=== PATIENT | female | born 1940 | race Caucasian/White ===

== ENCOUNTER 2017-01-04 21:23 | Inpatient (IN) | payer MEDICARE, OTHER ==
--- NOTE | ~2017-01-04 | HP ---
History And Physical [place] [id number] [facility] [place]. [address] NAME: PER RIVERS : 40 STATUS : ADM Adrianna PAT#: [id number] AGE: 76 ADM/REG DATE : 01/04/17 MR#: [id number] REPORT SERV DATE: 01/05/17 DICTATED BY: ROULA BALLESTEROS DATE: 01/05/17 REPORT STATUS : Draft TRANSCRIBED BY: MODL DATE: 01/05/17 DATE OF ADMISSION: 01/04/2017 CHIEF COMPLAINT: Shortness of breath, appears to be over a week and progressively over the last two days and frequent falls. HISTORY OF PRESENT ILLNESS: The patient is a 76-year-old female with long history of smoking although the patient denies smoking. She reports she quit approximately four months ago with past medical history of COPD, hyperlipidemia, breast cancer approximately 30 years ago, thyroid disease with hypothyroidism who presents after having progressive shortness of breath, was being treated for flu and azithromycin empirically with Tamiflu and azithromycin approximately three to four days ago but has not had any real significant recovery. Symptoms are shortness of breath, it becomes where she has had decreased exercise tolerance, a constant moderate severity. No pain radiating symptoms. No nausea, vomiting, but has had shortness of breath, reported fever but none since daughter has come back in town who is in the medical field, has been supervising patient's care. The patient has also noted increased weakness with wheezing, has had right knee discomfort and back discomfort after five or six falls. She reports she gets unsteady moving around. Symptoms are worse with activity, only relieved by rest. Symptoms are still currently present. The patient has had negative flu test in clinic but again was started empirically on Tamiflu. The patient has concern for possible technique difficulties with inhaler as the patient is using inhaler approximately q.6 to 4 hours without resolution. ADDITIONAL REVIEW OF SYSTEMS: CONSTITUTIONAL: Noted for weakness and fevers. EYES: No eye pain or visual changes. ENT: No sore throat or congestion. NEURO: No headache or confusion. SKIN: No rashes or bruising. RESPIRATORY: Positive shortness of breath and wheezing. CV: No chest pain or palpitations. GI: No nausea, vomiting, diarrhea, or abdominal pain. : Does have mild hesitation and frequency. MUSCULOSKELETAL: Does have arthralgias, myalgias in back and knee but no swelling. ENDO: Mild fatigue. No polyuria. HEME: No bleeding or bruising. IMMUNOLOGIC: No rrhinorrhea. PSYCH: No anxiety or confusion. PAST MEDICAL HISTORY: COPD, hyperlipidemia, breast cancer 30 years ago. Thyroid disorder, has had left hysterectomy, bilateral knees. 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 The patient denies any smoking history but then admits that she smoked since she was a college up until about four months ago at least half pack per day but she only smokes half of the cigarette. No alcohol or illicits. FAMILY HISTORY: Alzheimer's. History And Physical [address] [address] NAME: PER RIVERS : 40 STATUS : ADM Adrianna PAT#: [id number] AGE: 76 ADM/REG DATE : 01/04/17 MR#: [id number] REPORT SERV DATE: 01/05/17 DICTATED BY: ROULA BALLESTEROS DATE: 01/05/17 REPORT STATUS : Draft TRANSCRIBED BY: WILLIAN DATE: 01/05/17 ALLERGIES: TO SULFA. HOME MEDICATIONS: Ventolin, Lipitor, Advair, Synthroid, Tamiflu, and Z-Nima. PHYSICAL EXAMINATION: VITAL SIGNS: Blood pressure 147/72, temperature 98.7, pulse 81, respirations 22, O2 saturations 96% on 4 L. GENERAL: Elderly thin slightly frail. EYES: No scleral icterus. EOMI. ENT: Dry mucous membranes. Oral, possible thrush. RESPIRATORY: Decreased lower breath sounds with rhonchi in right lung rossi and does have faint wheeze diffusely. CV: Regular rate. No rubs. Pedal pulses palpable, GI: Soft, nontender, nondistended. Bowel sounds positive. : Deferred. MUSCULOSKELETAL: Moves all extremities. 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 No signs of erythema or dislocation of knees bilaterally. 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 SKIN: Warm and dry. LYMPH: No cervical or supraclavicular lymphadenopathy. HEME: No bleeding or bruising. NEURO: Alert and oriented. Moves all extremities x4. PSYCH: Appropriate mood and affect. PERTINENT LABS: Urinalysis; no leukocyte esterase or nitrites. CMP: Procalcitonin negative. BMP grossly within normal limits with glucose 125, calcium 8.0. LFTs; AST and ALT 46 and 38, lactate 0.9. CBC: WBC count 3.8, H and H 13.5 and 39.6, platelets 134. ASSESSMENT AND PLAN: 1. Acute chronic obstructive pulmonary disease exacerbation. 2. Acute hypoxia. 3. Bicytopenia. 4. Hyperlipidemia. 5. Breast cancer history. 6. Hypothyroidism. 7. Weight loss. 8. Frequent falls. 9. Right knee and back pain. 10.Thrush. 11.Systemic inflammatory response syndrome. PLAN: 1. For acute COPD exacerbation, stopped smoking approximately four months ago, was a half- pack per day. Does have poor albuterol technique as the patient does have oral thrush. With this, we will do O2 DuoNebs education, change azithromycin to cephalosporin. Complete Tamiflu as the patient has almost completed with treatment and EZPAP as the patient is currently on 4 L of O2. 2. Acute hypoxia, treat acute COPD exacerbation, requiring 4 L and the patient's baseline is on room air. History And Physical [address] [address] NAME: PER RIVERS : 40 STATUS : ADM Adrianna PAT#: [id number] AGE: 76 ADM/REG DATE : 01/04/17 MR#: [id number] REPORT SERV DATE: 01/05/17 DICTATED BY: ROULA BALLESTEROS DATE: 01/05/17 REPORT STATUS : Draft TRANSCRIBED BY: MODNuria DATE: 01/05/17 3. Bicytopenia. Unclear etiology. We will need to follow. 4. Hyperlipidemia, on medications. 5. Breast cancer history. Has had prior mastectomy, has had ceballos-scan by PCP one month ago. 6. Hypothyroidism, on replacement. 7. Weight loss. She as had full body CT scan per PCP. We will defer to PCP for this. 8. Falls, frequently. PT evaluation, does have acute hypoxia. 9. Right knee and back pain. Check right knee and back plain films. No signs or symptoms of acute break, no tenderness on spine palpation or any palpation at this time. 10.Thrush. Nystatin and teaching of technique. 11.SIRS, treat acute COPD exacerbation, and monitor. All questions answered to the patient and family at bedside. DDN/MODL Roula Ballesteros MD / [id number] CC: Joseph Brock Jr, MD Christine Parker, M.D.
--- NOTE | ~2017-01-04 | DS ---
Discharge Summary [facility] [address] [place]. [address] NAME: PER RIVERS : 40 STATUS : DIS IN PAT#: [id number] AGE: 76 ADM/REG DATE : 01/04/17 MR#: [id number] REPORT SERV DATE: 01/07/17 DICTATED BY: SUNNY TIPTON II DATE: 01/06/17 REPORT STATUS : Draft TRANSCRIBED BY: MODL DATE: 01/06/17 ADMISSION DATE: 01/04/2017 DISCHARGE DATE: 01/06/2017 DISCHARGE DIAGNOSES: 1. Acute exacerbation of chronic obstructive pulmonary disease. 2. Acute hypoxic respiratory failure. 3. Debility. 4. Likely underlying dementia. 5. History of hyperlipidemia. 6. History of breast cancer 30 years ago. 7. Degenerative joint disease. 8. Recent weight loss. Being worked up by PCP with reported negative CT of the chest and abdomen, possibly related to progressive chronic obstructive pulmonary disease. BRIEF HISTORY OF PRESENT ILLNESS: The patient is a 76-year-old female with the above history who presented moral due to progressive shortness of breath and frequent falls. For detailed history and physical examination, please see Dr. Anderson's note from 01/04/2017. HOSPITAL COURSE: After admission, the patient was treated for an acute exacerbation of chronic obstructive pulmonary disease. Her white count was normal and chest x-ray showed chronic changes, but no acute process. She was afebrile and her blood gas did show hypoxia. She has been stable on 2 L nasal cannula and is no longer wheezing with prednisone, nebs, and her inhalers. PT evaluated the patient and thought that she would benefit from inpatient rehab. Currently, the patient is saturating well on 2 L and no more wheezing. She is approved for [facility], and we will go ahead and discharge her for further rehab. Otherwise, she had complained of back pain after a fall and x-rays of her lumbar spine were done which showed just degenerative changes in the lumbar and thoracic spine. Right knee x- ray showed intact prosthesis. The patient is stable for discharge. DISCHARGE MEDICATIONS: 1. Lipitor 40 mg p.o. q.h.s. 2. Omnicef 300 mg p.o. b.i.d. x3 days. 3. Synthroid 88 mcg p.o. daily. 4. Prednisone 40 mg p.o. daily x2 days, then 20 mg p.o. daily x2 days. 5. DuoNeb q.4 hours while awake. 6. Advair one puff inhaled b.i.d. 7. Ventolin two puffs q.4 hours p.r.n. DISCHARGE INSTRUCTIONS: The patient will be discharged to [facility] for further rehab. CHRISTIANO/WILLIAN Sunny Crump Discharge Summary [place] [address] [place]. [address] NAME: PER RIVERS : 40 STATUS : DIS IN PAT#: [id number] AGE: 76 ADM/REG DATE : 01/04/17 MR#: [id number] REPORT SERV DATE: 01/07/17 DICTATED BY: SUNNY TIPTON II DATE: 01/06/17 REPORT STATUS : Draft TRANSCRIBED BY: WILLIAN DATE: 01/06/17 Russell FLORENCE MD / [id number] CC: MD Belem Dennison II, M.D. [facility]
[2017-01-04 21:06] LABS: BASOPHILS 0.5 %; BASOPHILS ABSOLUTE 0.02 10/3/uL (0.0-0.16); EOSINOPHILS 0 %; ER CBC TAT 0 Hrs 05 Mins; HEMOGLOBIN 13.5 g/dL (12.0-16.0); IMMATURE GRANULOCYTES 0.3 %; IMMATURE GRANULOCYTES ABSOLUTE 0.01 10/3/uL (0.0-0.11); LYMPHOCYTES 14.7 %; LYMPHOCYTES ABSOLUTE 0.56 10/3/uL (0.67-4.30); MEAN CORPUS HGB CONC 34.1 g/dL (32.0-36.0); MEAN CORPUSCULAR HEMOGLOB 30.8 pg (26.0-34.0); MEAN PLATELET VOLUME 9.5 fL (9.2-13.0); MONOCYTES 7.6 %; MONOCYTES ABSOLUTE 0.29 10/3/uL (0.21-1.20); NEUTROPHILS 76.9 %; NEUTROPHILS ABSOLUTE 2.92 10/3/uL (2.02-8.40); RBC DISTRIBUTION WIDTH 12.9 % (12.0-16.0); RED CELL COUNT 4.38 10/6/uL (4.0-5.6); WHITE BLOOD CELLS 3.8 10/3/uL (4.5-10.5)
[2017-01-04 21:07] LABS: HEMATOCRIT 39.6 % (36.0-48.0); MANUAL DIFF NO %; MEAN CORPUSCULAR VOLUME 90.4 fL (80-100); PLATELET COUNT 134 10/3/uL (150-400)
[2017-01-04 21:21] LABS: A/G RATIO 1.2 (0.7-1.9); ALBUMIN 3.3 G/DL (3.5-5.0); ALKALINE PHOSPHATASE 103 U/L (45-117); BUN (BLOOD UREA NITROGEN) 6 MG/DL (6-23); CHLORIDE, SERUM 101 MMOL/L (96-112); CO2 (CARBON DIOXIDE) 24 MMOL/L (24-34); CREATININE 0.41 MG/DL (0.55-1.02); GFR AFRICAN AMERICAN 116 ML/MIN (>=60); GFR NON AFRICAN AMERICAN 100 ML/MIN (>=60); GLOBULIN 2.8 G/DL (2.5-4.1); GLUCOSE, SERUM 125 MG/DL (60-99); POTASSIUM, SERUM 3.7 MMOL/L (3.5-5.3); SGOT(AST) 46 U/L (5-40); SGPT(ALT) 38 U/L (5-65); SODIUM, SERUM 136 MMOL/L (135-148); TOTAL BILIRUBIN 0.5 MG/DL (0-1.2); TOTAL PROTEIN 6.1 G/DL (6.0-8.5)
[~2017-01-04 21:23] MED LIST: LIPITOR40 PO; SYN88 PO
[2017-01-04] MEDS ORDERED: LIPITOR40 PO (21:43)
[2017-01-04] MEDS ORDERED: SYN88 PO (21:44)
[2017-01-04] MEDS ORDERED: ADVAIR250 INH (21:44)
[2017-01-04] MEDS ORDERED: VENTOLIN HFA INH (21:45)
[2017-01-04] MEDS ORDERED: Z-PAK PO (21:47)
[2017-01-04] MEDS ORDERED: TAMIFLU PO (21:48)
[2017-01-04 21:58] LABS: PROCALCITONIN <0.05 ng/mL (<0.5)
[2017-01-04 22:05] LABS: WBC (NOT ORDERED) (RFLEX) 0 (0-5)
[2017-01-04 22:15] LABS: ASCORBIC ACID (UR NOT ORDER) NEG (NEG); BILIRUBIN, URINE NEGATIVE (NEG); ER URINALYSIS TAT 0 Hrs 12 Mins; KETONE, URINE 20 MG/DL (NEG); LEUKOCYTE ESTERASE(NOT OR NEG (NEG); NITRITE (URINE) NEG (NEG)
[2017-01-05 06:40] LABS: HEMATOCRIT 36.6 % (36.0-48.0); HEMOGLOBIN 12.6 g/dL (12.0-16.0); MEAN CORPUS HGB CONC 34.4 g/dL (32.0-36.0); MEAN CORPUSCULAR VOLUME 90.1 fL (80-100); MEAN PLATELET VOLUME 9.6 fL (9.2-13.0); PLATELET COUNT 138 10/3/uL (150-400); RBC DISTRIBUTION WIDTH 12.6 % (12.0-16.0); RED CELL COUNT 4.06 10/6/uL (4.0-5.6)
[2017-01-05 06:45] LABS: WHITE BLOOD CELLS 1.9 10/3/uL (4.5-10.5)
[2017-01-05 06:46] LABS: MANUAL DIFF YES %
[2017-01-05 07:00] LABS: ALBUMIN 2.8 G/DL (3.5-5.0); ALKALINE PHOSPHATASE 96 U/L (45-117); BUN (BLOOD UREA NITROGEN) 6 MG/DL (6-23); CALCIUM, SERUM 8.2 MG/DL (8.5-10.4); CHLORIDE, SERUM 100 MMOL/L (96-112); CO2 (CARBON DIOXIDE) 23 MMOL/L (24-34); CREATININE 0.46 MG/DL (0.55-1.02); FREE T4 1.34 NG/DL (0.76-1.46); GFR AFRICAN AMERICAN 112 ML/MIN (>=60); GFR NON AFRICAN AMERICAN 97 ML/MIN (>=60); GLOBULIN 2.7 G/DL (2.5-4.1); POTASSIUM, SERUM 3.6 MMOL/L (3.5-5.3); SGOT(AST) 35 U/L (5-40); SGPT(ALT) 34 U/L (5-65); SODIUM, SERUM 136 MMOL/L (135-148); TOTAL BILIRUBIN 0.5 MG/DL (0-1.2); TOTAL PROTEIN 5.5 G/DL (6.0-8.5); TROPONIN I 0.02 NG/ML (<0.05)
[2017-01-05 07:01] LABS: GLUCOSE, SERUM 186 MG/DL (60-99); ULTRASENSITIVE TSH 0.431 MCIU/ML (0.358-3.740)
[2017-01-05 07:33] LABS: BAND NEUTROPHILS 7 %; LYMPHOCYTES 13 %; LYMPHOCYTES ABSOLUTE (CALC) 0.21 10/3/uL (0.67-4.30); MONOCYTES 3 %; MONOCYTES ABSOLUTE (CALC) 0.06 10/3/uL (0.21-1.20); NEUTROPHILS ABSOLUTE (CALC) 1.63 10/3/uL (2.02-8.40); PLATELET ESTIMATE DEC (ADEQUATE); SEGMENTED NEUTROPHIL (0) 77 %; TOTAL NUCLEATED CELLS 100
[2017-01-05 07:34] LABS: BURR CELLS 3+ (>30/OIF) (0-2/OIF); ELLIPTOCYTES 1+ (3-10/OIF) (0-2/OIF); TARGET CELLS OCC (1-2/OIF) (0-1/OIF)
[2017-01-05 08:54] LABS: BE (BASE EXCESS) -1.5 MEQ/L (0 +/- 2.5); CARBOXYHEMOGLOBIN 1.3 % (0-3); DEVICE NC; HCO3 (ACTUAL BICARBONATE) 21.8 MEQ/L (23-27); HEMOBLOGIN CONTENT 13.7 G/DL (12-16); INSTRUMENT SERIAL # 8087; METHEMOGLOBIN 0.1 % (0-3); O2 CONTENT 18.1 VOL% (18-24); PCO2 (CO2 TENSION) 33 MMHG (35-45); PO2 (O2 TENSION) 77 MMHG (79-93); SAMPLE Arterial; pH 7.44 (7.37-7.43)
[2017-01-06 05:59] LABS: BASOPHILS 0.2 %; BASOPHILS ABSOLUTE 0.02 10/3/uL (0.0-0.16); EOSINOPHILS 0 %; HEMATOCRIT 37.1 % (36.0-48.0); HEMOGLOBIN 12.7 g/dL (12.0-16.0); IMMATURE GRANULOCYTES 0.1 %; IMMATURE GRANULOCYTES ABSOLUTE 0.01 10/3/uL (0.0-0.11); LYMPHOCYTES 13.5 %; LYMPHOCYTES ABSOLUTE 1.18 10/3/uL (0.67-4.30); MEAN CORPUS HGB CONC 34.2 g/dL (32.0-36.0); MEAN CORPUSCULAR HEMOGLOB 31.1 pg (26.0-34.0); MEAN CORPUSCULAR VOLUME 90.7 fL (80-100); MEAN PLATELET VOLUME 9.5 fL (9.2-13.0); MONOCYTES 12.4 %; MONOCYTES ABSOLUTE 1.09 10/3/uL (0.21-1.20); NEUTROPHILS 73.8 %; NEUTROPHILS ABSOLUTE 6.46 10/3/uL (2.02-8.40); PLATELET COUNT 153 10/3/uL (150-400); RBC DISTRIBUTION WIDTH 13.1 % (12.0-16.0); RED CELL COUNT 4.09 10/6/uL (4.0-5.6)
[2017-01-06 06:00] LABS: MANUAL DIFF NO %; WHITE BLOOD CELLS 8.8 10/3/uL (4.5-10.5)
== END 2017-01-06 17:58 | DRG 189 ==
LOC: ER 21:23 → 5NO 23:59
PROVIDERS: Internal Medicine; Nurse Practitioner Acute Care
DX: J96.21 Acute and chronic respiratory failure with hypoxia (principal); E44.0 Moderate protein-calorie malnutrition; R65.10 Systemic inflammatory response syndrome (SIRS) of non-infectious origin without acute organ dysfunction; B37.0 Candidal stomatitis; D69.6 Thrombocytopenia, unspecified; J44.1 Chronic obstructive pulmonary disease with (acute) exacerbation; E03.9 Hypothyroidism, unspecified; Z85.3 Personal history of malignant neoplasm of breast; E78.5 Hyperlipidemia, unspecified; Z68.21 Body mass index [BMI] 21.0-21.9, adult; D72.819 Decreased white blood cell count, unspecified; Z91.81 History of falling; Z87.891 Personal history of nicotine dependence; Z88.2 Allergy status to sulfonamides
CPT/HCPCS: 36600; 71010; 72072; 72100; 73560-RT; 80053; 81001; 82805; 83605; 83735; 84145; 84439; 84443; 84484; 85025; 87040; 87070; 87205; 93005; 94640; 96374; 97116-GP; 97162-GP; 99285; A9270-GY; G8978-CK-GP; G8979-CJ-GP; J2405; J2920; J2930